=== PATIENT | male | born 1980 | race Asian ===

== ENCOUNTER → 2024-04-15 | Day surgery (SDC) | payer BC ==
[~2024-04-15] MED LIST: DEXAMETHASONE SOD PHOS INJ 4 MG/ML SDV ONE; GLYCOPYRROLATE INJ 0.2 MG/ML VIAL ONE; LACTATED RINGER'S 1,000 ML ONE; METOCLOPRAMIDE HCL 10 MG/2ML VIAL ONE; MIDAZOLAM HCL 2 MG/2 ML VIAL ONE; ONDANSETRON HCL INJ 2MG/ML 2ML 2 MG/ML VIAL ONE; PHENYLEPHRINE HCL 1% 10 MG/ML VIAL ONE; PROPOFOL IV EMULSION 10 MG/ML 20 ML VIAL ONE; PROPOFOL IV EMULSION 50 ML IV ONE
[2024-04-15 16:37] VITALS: TEMP 97
[2024-04-15 17:05] VITALS: BP 106/69; PULSE 68; RESP 13; O2SAT 99
== END | disposition home or self-care (01) ==
LOC: OR 14:08
PROVIDERS: ATTEND Internal Medicine Gastroenterology
DX: Z12.11 Encounter for screening for malignant neoplasm of colon (principal); K62.1 Rectal polyp; K64.8 Other hemorrhoids; K59.09 Other constipation; Z68.24 Body mass index [BMI] 24.0-24.9, adult
CPT/HCPCS: 45380; 93005; J1100; J2250; J2371; J2405; J2704 ×2; J2765; J7121